=== PATIENT | female | born 1945 | race Caucasian/White ===

== ENCOUNTER → 2021-11-18 10:06 | Outpatient (CLI) | payer MEDICARE, SELFPAY ==
--- NOTE | ~2021-11-18 | US_ITS ---
EXAMINATION: US thyroid EXAM DATE: 11/18/2021 10:31 INDICATION: Hypothyroidism. TECHNIQUE: Multiple grayscale and Doppler images of the thyroid were obtained (by a technologist who performed the scan) and subsequently reviewed. Individual nodules and recommendations may be reporte d in accordance with TI-RADS system as designated by the 2017 ACR White Paper TI-RADS committee. The re is no prior study for comparison. FINDINGS: The right thyroid lobe measures 3.3 x 1.2 x 0.8 cm, the left measuring 3.2 x 1.1 x 0.8 cm. There is m oderately diffusely heterogeneous thyroid echogenicity. Possible hypoechoic 8 x 6 mm nodule in the le ft thyroid lobe midpole, category TR 4 nodule if real, but this could also just be part of heterogene ous echotexture. In either case, this is not likely clinically significant finding and no further act ion required based on current recommendations. IMPRESSION: 1. Mildly heterogeneous normal-sized thyroid. 2. Possible subcentimeter left thyroid lobe nodule not likely clinically significant. Reviewed, dictated and finalized at location B. IMPRESSION: 1. Mildly heterogeneous normal-sized thyroid. 2. Possible subcentimeter left thyroid lobe nodule not likely clinically signi ficant.
== END ==
PROVIDERS: PCP Emergency Medicine; Visit Provider Emergency Medicine
DX: E03.9 Hypothyroidism, unspecified (principal)
CPT/HCPCS: 76536

== ENCOUNTER → 2022-01-02 15:35 | Outpatient (CLI) | payer MEDICARE, SELFPAY ==
--- NOTE | ~2022-01-02 | MM_ITS ---
EXAMINATION: MM screening john BI w sherley HISTORY: Screening TECHNIQUE: Craniocaudal and mediolateral oblique 3-D tomosynthesis images were obtained and synthetic 2-D images were generated. CAD analysis was submitted and interpreted. COMPARISON: No prior mammogram is available for comparison at this institution. BREAST PARENCHYMAL COMPOSITION: There are scattered areas of fibroglandular density. FINDINGS: There is no evidence of suspicious mass, calcification, or architectural distortion to sugg est malignancy in either breast. There has been no suspicious interval change. IMPRESSION: 1. No mammographic evidence of malignancy. 2. Recommend routine screening mammography in one year. BI-RADS Category 1: Negative Reviewed, dictated and finalized at location A.
== END ==
PROVIDERS: PCP Emergency Medicine; Visit Provider Emergency Medicine
DX: Z12.31 Encounter for screening mammogram for malignant neoplasm of breast (principal)
CPT/HCPCS: 77063; 77067

== ENCOUNTER → 2022-01-29 12:06 | Outpatient (CLI) | payer MEDICARE, SELFPAY ==
--- NOTE | ~2022-01-29 | DEXA_ITS ---
Bone Density Report Name: VIRY PERALES Age: 77 Sex: Female Ethnicity: White Date of : 1945 Indication: postmenopausal; screening for osteoporosis; hysterectomy; Referring Provider: ALONSO COYLE Study: Bone densitometry was performed. Exam Date: January 29, 2022 Accession number: [id number] Bone Density: Region BMD T-score Z-score Classification AP Spine (L1-L4) 0.987 -0.5 1.9 Normal Femoral Neck (Left) 0.742 -1.0 1.1 Normal Total Hip (Left) 0.973 0.3 2.0 Normal Femoral Neck (Right) 0.879 0.3 2.4 Normal Total Hip (Right) 0.980 0.3 2.1 Normal Total Hip Mean 0.977 0.3 2.1 Normal World Health Organization criteria for BMD impression classify patients as: Normal (T-score at or above -1.0), Osteopenia (T-score between -1.0 and -2.5), or Osteoporosis (T-score at or below -2.5). 10-year Fracture Risk: FRAX not reported because: All T-scores for Spine Total, Hip Total, Femoral Neck at or above -1.0 Clinical Information Provided by Patient: Has the following medical conditions: Hysterectomy Patient maximum height was 60.0 Menopause Age: 42 Does not regularly consume dairy products Drinks caffeinated beverages Onset of menses at age 14 Number of children 2 Impression: The patient has normal bone mass. Discussion: BONE DENSITY IS ABOVE THE MINIMUM DESIRABLE LEVEL AT ALL SKELETAL SITES TESTED. This patient?s bone mineral density is above the minimum desirable level (T-score -1.0 or better) at all sites measured. The patient should follow a healthful lifestyle (good nutrition with adequate calcium and vitamin D, and appropriate weight-bearing exercise). Follow-Up: Consider repeating this study in 5 years or sooner if there is some new clinical indication. Reported by: [facility] on 01/29/2022 12:34:00 PM. Reviewed, dictated and finalized at location AJose [facility]
== END ==
PROVIDERS: PCP Emergency Medicine; Visit Provider Emergency Medicine
DX: Z78.0 Asymptomatic menopausal state (principal); M85.859 Other specified disorders of bone density and structure, unspecified thigh
CPT/HCPCS: 77080

== ENCOUNTER 2022-04-22 06:55 | Outpatient (CLI) | payer MEDICARE, SELFPAY ==
--- NOTE | ~2022-04-22 | CT_ITS ---
EXAMINATION: CT abdomen pelvis w con DATE: 04/22/2022 07:29 INDICATION: Abdominal pain. TECHNIQUE: Computed tomography (CT) of the abdomen and pelvis was performed with 100 mL Omnipaque 350 intravenous contrast. Automated exposure control and iterative reconstruction technique were employe d. The dose-length product was 585.88 mGy-cm. COMPARISON: None. FINDINGS: The visualized portions of the lung bases demonstrate mild atelectasis. No pleural effusion . The heart size is normal. No pericardial effusion. There is a small sliding hiatal hernia. There is a 9 mm low-attenuation mass in the liver, likely benign. The gallbladder, spleen, pancreas, adrenal glands, and left kidney are normal. There is a 7 mm cyst in right kidney. There is a 2 mm stone in ri ght kidney. There are scattered diverticula in the colon. There is stranding around fat adjacent to s igmoid colon, consistent with fat necrosis. The appendix is normal. There are no pathologically enlar ged lymph nodes. There is no free intraperitoneal fluid. There is severe lower lumbar spondylosis. IMPRESSION: 1. Perisigmoid fat necrosis. Reviewed, dictated and finalized at location A.
[2022-04-22 07:22] LABS: Estimated Glomerular Filt Rate > 60
== END 2022-04-22 06:56 | disposition home or self-care (01) ==
LOC: ANHIMG 06:58
PROVIDERS: PCP Emergency Medicine; Visit Provider Emergency Medicine
DX: R10.9 Unspecified abdominal pain (principal); M79.89 Other specified soft tissue disorders
CPT/HCPCS: 74177; Q9967